=== PATIENT | male | born 1960 | race Caucasian/White ===

== ENCOUNTER 2019-05-13 21:19 | Emergency (ER) | payer MEDICAID ==
[~2019-05-13] VITALS: Ht 180.3 cm; Wt 81.6 kg
[2019-05-13 21:22] VITALS: Ht 180.3 cm; Wt 81.6 kg
[2019-05-13 22:03] LABS: BASOPHIL % 0.5 % (0-2); PLATELET COUNT 378 x10^3mcL (130-400)
[2019-05-13 22:04] LABS: RED CELL DISTRIBUTION WIDTH 14.8 % (11.5-14.5)
[2019-05-13 22:18] LABS: CALCIUM 9.3 mg/dL (8.5-10.1); CARBON DIOXIDE 30.3 mmol/L (21-32); CHLORIDE SERUM 104 mmol/L (98-107); CREATININE SERUM 0.7 mg/dL (0.7-1.3); GFR1 > 60 mL/min; GLUCOSE SERUM 116 mg/dL (74-106); POTASSIUM SERUM 3.7 mmol/L (3.5-5.1); SODIUM SERUM 142 mmol/L (136-145)
[2019-05-13 22:23] LABS: ALKALINE PHOSPHATASE 189 U/L (46-116); ALT/SGPT 18 U/L (16-63); AST/SGOT 20 U/L (15-37); BILIRUBIN TOTAL 0.17 mg/dL (0.20-1.00); TOTAL PROTEIN, SERUM 8.2 g/dL (6.4-8.2)
[2019-05-13 22:30] LABS: ALBUMIN 3.3 g/dL (3.4-5.0)
[2019-05-14 00:21] LABS: microscopic required? YES; urine erythrocyte 2+ (NEGATIVE)
[2019-05-14 05:07] VITALS: BP 114/91
== END 2019-05-14 05:07 | disposition home or self-care (01) ==
LOC: EDBD 21:19 → ED 21:19
PROVIDERS: Emergency Medicine
DX: L03.317 Cellulitis of buttock (principal); L89.152 Pressure ulcer of sacral region, stage 2; E86.0 Dehydration
CPT/HCPCS: J3490; J7030